=== PATIENT | female | born 1990 ===

== ENCOUNTER 2021-09-02 05:58 | Emergency (ER) | payer SELFPAY ==
[2021-09-02 06:10] VITALS: BP 145/98
--- NOTE | 2021-09-03 12:11 | Electrocardiograph Report ---
[facility] Test Date: 2021-09-02 Test Time: 07:48:58 Pat Name: KALI COYLE Department: Room: Gender: F [place] Cutter: ANDREA : 1990 Requested By: ANDRES ZAIDI Order Number: [id number] Reading MD: Claudio Burton Measurements Intervals Dille Rate: 81 P: 76 SD: 123 QRS: 67 QRSD: 75 T: 41 QT: 378 QTc: 439 Interpretive Statements Sinus rhythm No previous ECG available for comparison Electronically Signed On 09-03-2021 12:11:00 EST by Claudio Burton
== END 2021-09-02 09:30 | disposition left against medical advice (07) ==
LOC: ED 05:58
DX: R06.02 Shortness of breath (principal); R07.89 Other chest pain; Z53.21 Procedure and treatment not carried out due to patient leaving prior to being seen by health care provider
CPT/HCPCS: 93005